=== PATIENT | female | born 1985 ===

== ENCOUNTER 2017-01-02 08:59 | Inpatient (IN) | payer BC, OTHER ==
--- NOTE | 2017-01-02 09:22 | OBHP ---
Datetime: 01/02/2017 09:18 IP Adm Impression: Term, intrauterine IP Admit Plan: Admit to unit Admit Comment, IP Provider: @ 38.4 wks c/o of ctx eveyr 5 min since last night, incresaing i ntensity and frequency 11/17, deies lof, vb, +FM Ante: 10Cm+ ovairan cyst, resovled OB: x 1 FT, SAB x 1 FACILITIES CUSTODIAN: hx of ovarian cyst, denie shx o abnorla pap, dibroid, sti PMHY: deies PSH: denies FHX: non contributory SHX: negatiev x 3 MEDS: PNV A/P @ 38.4 wks in active labor, gbs negative -admit to ld -anethesia consult prn -cont toco and efm -npo, ivf Pelvic Type - PN: Adequate Extremities - PN: Normal Abdomen - PN: Normal Back - PN: Normal Breast - PN: Normal Lungs - PN: Normal Heart - PN: Normal Thyroid - PN: Normal Neurologic - PN: Normal HEENT - PN: Normal General - PN: Normal Presentation-Admit: Vertex FHR - Baseline A Provider: 140 Membranes, Provider: Intact Contraction Comments Provider: q 2 min Gestation - Est Wks by US: 38.4 IP Hx Assessment: The History has been Reviewed and is Current EGA AdmitDate IP: 38.4 IP Chief Complaint: Uterine contractions NICHD Variability Prov Fetus A: Moderate 6-25bpm NICHD Accel Fetus A IP Provider: 15X15 FHR Category Provider Fetus A: Category I NICHD Decel Fetus A IP Provider: None Dilatation, Provider: 4 Effacement, Provider: 50 Station, Provider: -2 Genitourinary Exam: Normal DTRs - PN: Normal
[2017-01-02] MEDS ORDERED: Lactated Ringer's 1,000 ML IV SCH ×2 (09:30)
[2017-01-02 09:31] LABS: BASO # 0.1 K/uL (0.0-0.2); BASO % 1.2 % (0.0-2.0); EOS # 0.1 K/uL (0.0-0.7); EOS % 1.2 % (0.0-4.0); HEMATOCRIT 35.5 % (34.0-47.0); LYMPH # 2.1 K/uL (1.0-4.3); LYMPH % 32.7 % (20.0-40.0); MEAN CORPUSCULAR HGB CONC 32.9 g/dL (33.0-37.0); MONO # 0.5 K/uL (0.0-0.8); MONO % 8.3 % (0.0-10.0); NRBC % 0.1 % (0.0-2.0); WHITE BLOOD COUNT 6.5 K/uL (4.8-10.8)
[2017-01-02 09:32] LABS: MEAN CELL VOLUME 79.1 fL (81.0-99.0)
[2017-01-02 09:43] LABS: CHLORIDE 105 mmol/L (98-107); POTASSIUM 3.7 mmol/L (3.6-5.2); RBC URINE 2 /hpf (0-3); SODIUM 139 mmol/L (132-148); URINE BACTERIA RARE (<OCC); URINE BILIRUBIN NEGATIVE (NEGATIVE); URINE BLOOD NEGATIVE (NEGATIVE); URINE COLOR Yellow (YELLOW); URINE GLUCOSE (UA) NORMAL (Normal); URINE KETONE NEGATIVE (NEGATIVE); URINE LEUKOCYTE ESTERASE 2+ Leu/uL (Negative); URINE PROTEIN NEGATIVE (NEGATIVE); URINE UROBILINOGEN NORMAL mg/dL (0.2-1.0); WBC URINE 10 /hpf (0-5)
[2017-01-02 09:45] LABS: GFR AFRICAN-AMERICAN > 60
[2017-01-02 09:46] LABS: ALB/GLOB RATIO 0.9 (1.0-2.1); ALKALINE PHOSPHATASE 202 U/L (38-126); ALT/SGPT 22 U/L (9-52); AST/SGOT 23 U/L (14-36); BILIRUBIN,TOTAL 0.4 mg/dL (0.2-1.3); BLOOD UREA NITROGEN 7 mg/dL (7-17); CALCIUM 8.7 mg/dl (8.6-10.4); CARBON DIOXIDE 20 mmol/L (22-30); GLUCOSE,RANDOM 79 mg/dL (65-105); TOTAL PROTEIN 6.6 g/dL (6.3-8.3)
[2017-01-02] MEDS ORDERED: Bupivacaine 0.125%/FentaNYL 200 ML EPI ONE (12:10)
[2017-01-02] MEDS ORDERED: Oxytocin 30 UNIT 30 UNITS/500 ML BAG IV ONE (12:59)
[2017-01-02] MEDS ORDERED: Oxytocin 30 UNIT 30 UNITS/500 ML BAG IV SCH ×2 (13:05→21:15)
--- NOTE | 2017-01-02 14:50 | OBPN ---
Datetime: 01/02/2017 14:47 IP Progress Impression: Normal progression of labor IP Progress Plan: Continue present management Membranes, Provider: Intact Contraction Comments Provider: q 1-2 FHR - Baseline A Provider: 125 Gestation - Est Wks by US: 38.4 Presentation-Admit: Vertex IP Progress Note Comment: pt seen and examien dc/o of pain s/p epidural jitendra eslof, vb, +FM VSS EMF: Cat I HAM: q 1-2 min A/p @ 38.4 wks GA in labor pitoicn as per protocol for augmentation cont curret mangamnet Vital Signs Provider: Reviewed; Within Normal Limits FHR Category Provider Fetus A: Category III NICHD Variability Prov Fetus A: Moderate 6-25bpm Dilatation, Provider: 5 Effacement, Provider: 60 Station, Provider: -2 Datetime: 01/02/2017 09:18 NICHD Accel Fetus A IP Provider: [id number] NICHD Decel Fetus A IP Provider: None
[2017-01-02] MEDS ORDERED: Oxycodone/Acetaminophen 5/325 mg Tab PO PRN ×2 (21:03)
--- NOTE | 2017-01-02 21:03 | OBDS ---
DELIVERY PERSONNEL Delivery Doctor: Mikayla Abarca MD Scrub Nurse: Ivett Marie Motion Study Analyst: Celina Joshua RN Anesthesiologist: MATERNAL INFORMATION Delivery Anesthesia: Epidural Estimated Blood Loss (ml): 200 Maternal Complications: None Provider Comments: pt was fully dilated and pushing. atrumatic, spontaneous delivery of head in jeremy position. body cord x 1 reduced. atruamtic, spontenous delivery of anterior followed by posterior gladys ulder followed by deliver of body. both oral and nasal passages of the baby were bulb suctioned. umbi lcal cord was clamped and cut. baby handed to mother on abomen with rn assistance. cord blood and cor d gases collected and sent x 2. Spontansous delivery of intact placenta with membranes. Fundus firm. Good hemostasis, intact perineum. No complicatoins. live female apgars 9,9 weight of 6lbs 12 ounces ebl 200ml no complicatoins LABOR SUMMARY EDC: 01/12/2017 00:00 No. Babies in Womb: 1 Attempted: No Labor Anesthesia: Epidural LABOR INFORMATION Reason for Induction: Not Applicable Cervical Ripening Agents: Cytotec @ (Annotations: 50 po) Oxytocin: Augmentation Group B Beta Strep: Negative Antibiotics # of Doses: 0 Antibiotics Time of Last Dose: 0 Steroids Given: None Reason Steroids Not Administered: Not Applicable MEMBRANES Amniotic Fluid Color: Clear Amniotic Fluid Amount: Moderate Amniotic Fluid Odor: Normal STAGES OF LABOR Stage 3 hrs: 0 Stage 3 min: 3 VAGINAL DELIVERY Episiotomy: None Laceration Extension: N/A Laceration Type: None Laceration Repair Note: intact perineum Initial Vag Sponge Count: 10 Final Vag Sponge Count: 10 Initial Vag Sharps Count: 0 Final Vag Sharps Count: 0 Sponge Count Correct: Yes; Vaginal Sweep Performed Sharps Count Correct: N/A BABY A INFORMATION Infant Delivery Date/Time: 01/02/2017 20:47 Method of Delivery: Vaginal Born in Route : No : N/A Forceps: N/A Vacuum Extraction: N/A Shoulder Dystocia : No SHOULDER DYSTOCIA BABY A Delivery Date/Time: 01/02/2017 20:47 PRESENTATION/POSITION BABY A Presentation: Cephalic Cephalic Presentation: Vertex Vertex Position: Right Occipital Anterior PLACENTA INFORMATION BABY A Placenta Delivery Time : 01/02/2017 20:50 Placenta Method of Delivery: Spontaneous Placenta Status: Delivered SCORES BABY A Heart Rate 1 min: >100 bpm Resp Effort 1 min: Good Cry Reflex Irritability 1 min: Cough or Sneeze or Pulls Away Muscle Tone 1 min: Active Motion Color 1 min: Body Fenton, Extremities Blue SCORE 1 MIN: 9 Heart Rate 5 min: >100 bpm Resp Effort 5 min: Good Cry Reflex Irritability 5 min: Cough or Sneeze or Pulls Away Muscle Tone 5 min: Active Motion Color 5 min: Body Fenton, Extremities Blue SCORE 5 MIN: 9 INFANT INFORMATION BABY A Gestational Age at Delivery: 38.4 Gestational Status: Term Infant Outcome : Liveborn Infant Condition : Stable Infant Sex: Female IDENTIFICATION/MEDS BABY A ID Band Number: [id number] ID Band Location: Left Leg; Left Arm Sensor Applied: Yes Sensor Number: [id number] Sensor Location : Cord Clamp Vitamin K Given : Aquamephyton 1 mg IM; Left Thigh Erythromycin Given: Given Both Eyes WEIGHT/LENGTH BABY A Infant Birthweight (gms): 3055 Weight (lb): 6 Infant Weight (oz): 12 Length Inches: 19.00 Length cms: 48.3 CORD INFORMATION BABY A No. Cord Vessels: 3 Nuchal Cord : N/A ASSESSMENT BABY A Complications: None Physical Findings at Delivery: Within Normal Limits Respirations: Appears Normal Pneumatic Tube Fitter/ALS Called : No Infant Care By: KIRK Transferred To: Remains with Mother
--- NOTE | 2017-01-03 03:58 | OBPPN ---
Datetime: 01/03/2017 03:53 PP Pain Prov: Within normal limits PP Nausea Prov: Denies PP Flatus Prov: Yes PP BM Prov: No PP Breasts Prov: Normal PP Heart Prov: Normal PP Lungs Prov: Normal PP Abdomen/Uterus Prov: Normal PP Lochia Prov: Normal PP Vulva/Perineum Prov: Normal PP CVA Tenderness Prov: Normal PP Extremities Prov: Normal PP C/S Incision Prov: Not Applicable PP Progress Prov: Normal PP Impression Prov: Normal progression PP Plan Prov: Continue present management PP Progress Note Prov: pt seen and examiend and rpeorts pain controlled iwth medication. pt is breat feeding, deie fevers, chills, nasuse, vomiting, CP, SOB VSS PE see above a/p s/p PPD #1 doing well -f/u am cbc -cont current managmante IP PP Procedures: None Vital Signs Provider PP: Reviewed; Within Normal Limits
[2017-01-03 07:20] LABS: BASO # 0.1 K/uL (0.0-0.2); BASO % 0.6 % (0.0-2.0); EOS # 0.1 K/uL (0.0-0.7); EOS % 0.9 % (0.0-4.0); HEMATOCRIT 33.5 % (34.0-47.0); LYMPH # 2.6 K/uL (1.0-4.3); LYMPH % 28.7 % (20.0-40.0); MEAN CELL VOLUME 80.2 fL (81.0-99.0); MEAN CORPUSCULAR HEMOGLOBIN 25.8 pg (27.0-31.0); MEAN CORPUSCULAR HGB CONC 32.2 g/dL (33.0-37.0); MEAN PLATELET VOLUME 9.4 fL (7.2-11.7); MONO # 0.7 K/uL (0.0-0.8); RED CELL DISTRIBUTION WIDTH 15.7 % (11.5-14.5); WHITE BLOOD COUNT 8.9 K/uL (4.8-10.8)
--- NOTE | 2017-01-04 07:47 | OBPPN ---
Datetime: 01/04/2017 07:44 PP Pain Prov: Within normal limits PP Nausea Prov: Denies PP Flatus Prov: Yes PP Breasts Prov: Normal PP Heart Prov: Normal PP Lungs Prov: Normal PP Abdomen/Uterus Prov: Normal PP Lochia Prov: Normal PP Vulva/Perineum Prov: Normal PP CVA Tenderness Prov: Normal PP Extremities Prov: Normal PP C/S Incision Prov: Not Applicable PP Progress Prov: Normal PP Impression Prov: Normal progression PP Plan Prov: Discharge PP Progress Note Prov: Pt seen and examined and reports pain is controlled with medication. pt denie s any fever, chills, nausea, vomiting, CP, SOB. pt is ambuting, tolerating regular diet, passing flat us, +BM. VSS GEN: NAD, AAo x 3 RESP: CTAB?l CVS: RRR, +S1/S2 BREAST Non tender, non engorged ABD: soft, NT/ND, +BS, no guarding, no reobud tenderness, no rigidity FUNDUS: Firm, at level of umbilucs VE: Minimal lochia, non ful smelling EXT: negative perez's sign A/P s/p PPD #2 stable for d/c -d;c home -precautisn given -RTO 6 week IP PP Procedures: None Vital Signs Provider PP: Reviewed; Within Normal Limits
--- NOTE | 2017-01-04 07:47 | OBDCSUM ---
Datetime: 01/03/2017 17:34 Discharge Instructions, Provider: Routine instructions given Discharge Diagnosis, Provider: Term Delivered Disch Referrals: None Contraception discussed, Prov: Yes Discharge Comment, Provider: Precautions given Contraception after Delivery: Not Planning to Use
[2017-01-04 08:04] VITALS: BP 111/68; PULSE 71; RESP 20
[2017-01-04 16:16] VITALS: TEMP 98.2; O2SAT 98
== END 2017-01-04 12:00 | disposition home or self-care (01) | DRG 775 ==
LOC: C.EROB 08:59 → C.4D 09:13 → C.4M 22:36
PROVIDERS: ADMIT Obstetrics & Gynecology; ATTEND Obstetrics & Gynecology
PROC: 10E0XZZ Delivery of Products of Conception, External Approach (ICD-10-PCS; principal; 2017-01-02)
DX: O80 Encounter for full-term uncomplicated delivery (principal); Z3A.38 38 weeks gestation of pregnancy; Z37.0 Single live birth

== ENCOUNTER 2018-08-20 09:48 | Outpatient (CLI) | payer BC | END 2018-08-20 09:49 | disposition home or self-care (01) | LOC: C.PAT 09:48 | DX: Z30.2 Encounter for sterilization (principal) ==

== ENCOUNTER 2018-08-27 05:59 | Day surgery (SDC) | payer BC ==
[2018-08-27 06:50] VITALS: BMI 25.0
[2018-08-27] MEDS ORDERED: Midazolam 2 MG/2 ML VIAL ONE (07:29)
[2018-08-27] MEDS ORDERED: Propofol 10 mg/ml Inj (20 ML) ONE (07:29)
[2018-08-27] MEDS ORDERED: Rocuronium 10 mg/ml (5 ml) ONE (07:30)
[2018-08-27] MEDS ORDERED: ceFAZolin 1 gm in NS 0 GM/0 ML BAG IVPB ONE (07:41)
[2018-08-27] MEDS ORDERED: Bupivacaine 0.25% 20 ML INJ IJ ONE (07:41)
[2018-08-27] MEDS ORDERED: HYDROmorphone 0.5 mg/0.5 ml ISec IVP PRN (09:30)
[2018-08-27 11:10] VITALS: O2SAT 99
[2018-08-27 12:16] VITALS: BP 102/58; PULSE 66; RESP 18; TEMP 97.8
--- NOTE | 2018-08-28 08:12 | OP ---
PROCEDURE DATE: 08/27/2018 PREOPERATIVE DIAGNOSIS: Multiparity, desires permanent sterilization. POSTOPERATIVE DIAGNOSIS: Multiparity, desires permanent sterilization. SURGEON: Emy Abarca MD. WATERSHED MANAGER: ELSIE Rios. TYPE OF ANESTHESIA: General. OPERATIVE FINDINGS: An 8-week size anteverted uterus, normal-appearing tubes, normal-appearing ovaries bilaterally. Rissa Aldana was the surgical scrub tech, present for the entire case, especially in gaining entry laparoscopically, docking the robot, inserting the instruments, uterine manipulation, removing the specimens, closing all layers, and was present for the entire case, she was essential. ESTIMATED BLOOD LOSS: 5 mL. BLOOD PRODUCTS: None. COMPLICATIONS: None. SPECIMENS: Sent to pathology right and left fallopian tubes. DESCRIPTION OF PROCEDURE: The patient was taken to the operating room, where she was given general anesthesia. Once it was found to be adequate, she was placed on the operating table in dorsal supine position with legs supported using stirrups in usual fashion. A time-out was performed confirming correct patient and correct procedure. Bimanual exam was performed with the above-mentioned findings. A Pulliam catheter was then inserted in the ureter to drain the bladder. Following this, bimanual exam was performed. A Pillai retractor was placed in the anterior and posterior fornix of the vagina. The cervix was adequately visualized. A single-tooth tenaculum was placed in the anterior lip of the cervix. The uterus was then sounded to 7 cm. Following this, the cervix was sequentially dilated to allow for introduction of the HUMI uterine manipulator, which was then inserted and advanced and insufflated with 8 mL of air. The HUMI uterine manipulator was noted in place, the tenaculum was removed with good hemostasis noted at the uterine site. All instruments were removed except for the HUMI uterine manipulator in the bladder. Legs were then repositioned. The surgeon re-gloved. Attention was then turned to the abdomen. The patient was given local anesthetic supraumbilically and an 8-mm skin incision was made with the scalpel. The skin was then retracted using two S-retractors and the fascia was then entered with a scalpel. The laparoscope was then inserted under direct visualization. . After the abdomen was insufflated with normal opening pressures, the laparoscope was removed. The patient was then placed in Trendelenburg position. The bowel was then retracted out of the way. There were normal tubes and ovaries bilaterally. Following this, da Sammy robotic operative device was then docked to the appropriate . Two 8-mm ports were put in the right and left lower quadrant under direct visualization. After the robot was docked, a monopolar scissor was placed in arm-3 and bipolar in arm-1. The surgeon then sat at a console da Sammy device and at that point the diploma medical assistant was providing anteverted traction on the HUMI uterine manipulator to allow for good visualization. At that point, the right fallopian tube was grasped using the bipolar device and the mesosalpinx was carefully dissected using the monopolar curved scissors. After obtaining adequate hemostasis, the fallopian tube was then cauterized at close proximity to the cornual region and was carefully dissected away. Similar was done on the contralateral fallopian tube. There was good hemostasis noted. At that point, the monopolar scissor was then removed and an atraumatic grasper was inserted under direct visualization and the specimen was removed through the port . Following this, the abdomen was desufflated. There was good hemostasis noted. The robot had been undocked. At that point, the skin incisions were closed with 3-0 Monocryl in a running subcuticular fashion. The HUMI uterine manipulator and the Pulliam had been removed. There was good hemostasis noted. At the end of the procedure, all needle, sponge, and instrument counts were noted to be correct x2. The patient tolerated the procedure well and was transferred to the recovery room in stable condition. Emy Abarca MD
== END 2018-08-27 12:20 | disposition home or self-care (01) ==
LOC: C.SDS 05:59
PROVIDERS: ATTEND Obstetrics & Gynecology
DX: Z30.2 Encounter for sterilization (principal)
CPT/HCPCS: 58661; 88302; J2001; J2250; J2405; J2704; J3010